=== PATIENT | male | born 1980 | race Caucasian/White ===

== ENCOUNTER 2022-02-09 13:17 | Emergency (ER) | payer OTHER, BC ==
[2022-02-09] MEDS ORDERED: Sodium Chloride 0.9% 1,000 ML IV ONE (13:18)
[2022-02-09] MEDS ORDERED: Ondansetron 4 MG/2 ML SDV IVPUSH ONE (13:20)
[2022-02-09] MEDS ORDERED: Morphine 4 MG/ML Syringe IVPUSH ONE (13:20)
[2022-02-09] MEDS ORDERED: Iopamidol 755 MG/ML 500 ML Multipack Bottle IVPUSH STA (13:37)
[2022-02-09 14:03] LABS: BLOOD UREA NITROGEN,BUN 7 mg/dL (7.0-18.0); CARBON DIOXIDE,CO2 27.5 mmol/L (21.0-32.0); CHLORIDE,CL 105 mmol/L (98-107); GLUCOSE RANDOM 106 mg/dL (74-106); POTASSIUM,K 3.7 mmol/L (3.5-5.1); SODIUM,NA 140 mmol/L (136-148)
[2022-02-09 14:04] LABS: LIPASE 146 U/L (73-393)
[2022-02-09 14:10] LABS: ESTIMATED GFR 109 mL/min (>60)
== END 2022-02-09 15:54 | disposition home or self-care (01) ==
LOC: MW.ED 13:17
DX: S62.635A Displaced fracture of distal phalanx of left ring finger, initial encounter for closed fracture (principal); V69.9XXA Occupant (driver) (passenger) of heavy transport vehicle injured in unspecified traffic accident, initial encounter; Y92.410 Unspecified street and highway as the place of occurrence of the external cause
CPT/HCPCS: 29125; 36415; 70450; 71260; 72125; 73130; 74177; 80053; 80307; 83690; 83735; 84484; 85025; 85610; 85730; 93005; 96361; 96374; 96375; 99284; J2270; J2405; J7030; Q9967; 72128-26; 72131-26